=== PATIENT | male | born 1990 | race Caucasian/White ===

== ENCOUNTER 2023-07-04 20:09 | Emergency (ER) | payer OTHER ==
[~2023-07-04] VITALS: Ht 175.3 cm; Wt 86.1 kg
[2023-07-04 20:49] VITALS: BP 153/96
[2023-07-04] MEDS ORDERED: LIDOCAINE 1% INJ 10 ML VIAL INJ ONE (21:00)
[2023-07-04] MEDS ORDERED: Tetanus/Diphtheria/Pertussis (Acell) ADULT Vaccine 0.5 ML IM ONE (21:00)
--- NOTE | 2023-07-04 21:10 | ED Lower Extremity ---
General Chief Complaint: Laceration Stated Complaint: INJ RIGHT LEG Nursing Triage Note: right anterior lower leg laceration after light fixture fell on leg. denies other injuries. Source: patient Exam Limitations: no limitations (TIA LUNSFORD) History of Present Illness Date Seen by Provider: Jul 04, 2023 Time Seen by Provider: 21:08 Initial Comments Patient is a 32-year-old male who presents ED with a laceration to his right lower leg. This occurred 1 hour ago. Was attempting to remove a light fixture in a remodel home when the light fixture fell causing a 3 cm laceration to his right lower extremity. Bleeding after the injury. Bleeding controlled direct pressure. Not up-to-date on his tetanus. Able to ambulate without any difficulties. Denies any distal numbness and tingling, nausea, vomiting, diarrhea fever, chills. (TIA LUNSFORD) Allergies and Home Medications Allergies Coded Allergies: No Known Drug Allergies (Unverified , 07/04/23) Patient Home Medication List Home Medication List Reviewed: Yes (TIA LUNSFORD) No Active Prescriptions or Reported Meds Review of Systems Constitutional: No chills, No diaphoresis, No malaise, No weakness EENTM: No hearing loss, No ear pain, No blurred vision Respiratory: No cough, No dyspnea on exertion, No short of breath Cardiovascular: No chest pain Gastrointestinal: No abdominal pain, No diarrhea, No vomiting Genitourinary: No decreased output, No discharge Musculoskeletal: No back pain, No joint pain; muscle pain Skin: change in color; No change in hair/nails (TIA LUNSFORD) All Other Systems Reviewed Negative Unless Noted: Yes (TIA LUNSFORD) Past Vlhwlkj-Kulnlh-Chgzye Hx Patient Social History Tobacco Use?: No Substance use?: No Alcohol Use?: No Pt feels they are or have been: No (TIA LUNSFORD) Past Medical History Surgery/Hospitalization HX: denies (TIA LUNSFORD) Physical Exam Vital Signs Vital Signs - First Documented 07/04/23 20:49 Temp 36.8 Pulse 74 Resp 16 B/P (MAP) 153/96 (115) Pulse Ox 97 O2 Delivery Room Air (KVNG,MARIA L K DO) Vital Signs Capillary Refill : Less Than 3 Seconds (TIA LUNSFORD) Height, Weight, BMI Height: '" Weight: lbs. oz. kg; 28.00 BMI Method: General Appearance: WD/WN, no apparent distress HEENT: PERRL/EOMI, normal ENT inspection, TMs normal, pharynx normal Neck: non-tender, full range of motion, supple, normal inspection Cardiovascular: regular rate, rhythm, no edema, no gallop, no JVD Respiratory: chest non-tender, lungs clear, normal breath sounds, no respiratory distress, no accessory muscle use Gastrointestinal: normal bowel sounds, non tender, soft Back: normal inspection, no CVA tenderness Legs: right leg other (3 cm laceration to right mid adame. Mild bleeding. Adipose involvement. 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 Bleeding controlled. Adipose involvement. No muscular vomit) (TIA LUNSFORD) Procedures/Interventions Wound Location: Lower Extremities Other Wound Location right lower ext Wound Length (cm): 3 Wound's Depth, Shape: superficial, sub Q Wound Explored: clean Irrigated w/ Saline (ccs): 500 Betadine Prep?: Yes Anesthesia: 1% Lidocaine Volume Anesthetic (ccs): 5 Suture: Ethlion Suture Size: 3-0 Number of Sutures: 9 Layer Closure?: 1 Sterile Dressing Applied?: Yes (TIA LUNSFORD) Progress/Results/Core Measures Results/Orders Vital Signs/I&O 07/04/23 20:49 Temp 36.8 Pulse 74 Resp 16 B/P (MAP) 153/96 (115) Pulse Ox 97 O2 Delivery Room Air (MARIA L CALDERON DO) Blood Pressure Mean: 115 Departure Communication (PCP) Patient with a 3 cm laceration to right lower leg. Explored the wound no obvious foreign body. Extensive irrigation with normal saline and Shur cleans. Updated his tetanus. Due to mechanism of injury x-ray was ordered which was negative for fracture. Nine 3-0 Ethilon sutures were placed here in the ED. Explored the wound no obvious foreign body. Patient tolerated procedure well. Procedure document note. Updated his tetanus. Remove sutures in 10 to 12 days. Topical Neosporin twice a day. If increased redness or swelling to return back to ED. no muscular involvement (TIA LUNSFORD) Impression Primary Impression: Leg laceration Disposition: HOME, SELF-CARE Condition: Stable Departure-Patient Inst. Decision time for Depature: 21:25 (TIA LUNSFORD) Referrals: NO,LOCAL PHYSICIAN (PCP) Primary Care Physician [facility] [place] Patient Instructions: Laceration Repair With Stitches ED Add. Discharge Instructions: Remove stitches in 10 to 12 days. Topical Neosporin twice a day. If increased redness or swelling or warmth return back to ED. All discharge instructions reviewed with patient and/or family. Voiced understanding. Scripts No Active Prescriptions or Reported Meds ATTENDING PHYSICIAN NOTE: I WAS PHYSICALLY PRESENT ER PHYSICIAN, BUT I WAS NOT INVOLVED IN ANY DECISION MAKING OR ANY CARE OF THIS PATIENT AND I AM NOT COLLABORATING PHYSICIAN. (MARIA L CALDERON DO) TIA LUNSFORD Jul 04, 2023 21:10 MARIA L CALDERON DO Jul 05, 2023 19:07
--- NOTE | 2023-07-04 21:35 | Diagnostic Imaging Report ---
TIBIA/FIBULA, RIGHT, 2 VIEWS COMPARISON: None available. INDICATION: Right lower leg trauma TECHNIQUE: Ap and lateral views of the tibia and fibula. FINDINGS: No fracture, focal osseous lesion or periosteal reaction. No radiopaque foreign body. Knee and ankle are normal in alignment. IMPRESSION: 1. No acute osseous abnormality. Dictated by: Dictated on workstation # [id number]
== END 2023-07-04 21:32 | disposition home or self-care (01) ==
LOC: EDUNIT# 20:09 → ER 20:13
DX: S81.811A Laceration without foreign body, right lower leg, initial encounter (principal); Z23 Encounter for immunization; W20.8XXA Other cause of strike by thrown, projected or falling object, initial encounter; Y92.002 Bathroom of unspecified non-institutional (private) residence as the place of occurrence of the external cause
CPT/HCPCS: 12002; 73590; 90715